=== PATIENT | female | born 1945 | race Caucasian/White ===

== ENCOUNTER 2017-09-28 16:31 | Emergency (ER) | payer OTHER ==
[~2017-09-28] VITALS: Ht 160 cm; Wt 99.8 kg
[2017-09-28] MEDS ORDERED: PERCOCET 5-3251 EACH PO (20:06)
== END 2017-09-28 20:23 | disposition home or self-care (01) ==
LOC: ED 16:31
DX: S43.015A Anterior dislocation of left humerus, initial encounter (principal); Z88.6 Allergy status to analgesic agent; W18.09XA Striking against other object with subsequent fall, initial encounter; Y93.89 Activity, other specified; Y92.89 Other specified places as the place of occurrence of the external cause; Y99.8 Other external cause status

== ENCOUNTER → 2020-11-14 | Outpatient (CLI) | payer OTHER ==
[~2020-11-14] MED LIST: PERCOCET 5-3251 EACH PO
== END | disposition home or self-care (01) ==
LOC: COVID19 15:51
PROVIDERS: ATTEND Family Medicine
DX: Z11.52 Encounter for screening for COVID-19 (principal)

== ENCOUNTER → 2021-02-01 | Outpatient (CLI) | payer OTHER | END | disposition home or self-care (01) | LOC: RAD 12:41 | PROVIDERS: ATTEND Internal Medicine | DX: J18.9 Pneumonia, unspecified organism (principal) ==

== ENCOUNTER 2024-12-19 22:42 | Emergency (ER) | payer OTHER ==
[~2024-12-19] VITALS: Ht 160 cm; Wt 63.5 kg
[2024-12-20] MEDS ORDERED: Acetaminophen/Hydrocodone 5 MG/325 MG TABLET PO ONE ×2 (00:10→02:30)
[2024-12-20] MEDS ORDERED: Ondansetron Hydrochloride 4 MG TAB SL ONE (00:10)
[2024-12-20] MEDS ORDERED: HYDROCODONE-AC1 EAC1 PO (01:57)
== END 2024-12-20 02:35 | disposition home or self-care (01) ==
LOC: ED 22:42
DX: S42.201A Unspecified fracture of upper end of right humerus, initial encounter for closed fracture (principal); Z88.5 Allergy status to narcotic agent; W01.0XXA Fall on same level from slipping, tripping and stumbling without subsequent striking against object, initial encounter; Y93.89 Activity, other specified; Y92.89 Other specified places as the place of occurrence of the external cause; Y99.8 Other external cause status